=== PATIENT | male | born 1995 | race Caucasian/White ===

== ENCOUNTER 2018-03-05 20:07 | Inpatient (IN) | payer BC ==
[2018-03-05 20:08] VITALS: BMI 36.5
--- NOTE | 2018-03-05 20:53 | ED PDOC ---
Arrival/HPI - General Chief Complaint: Psychiatric Evaluation Time Seen by Provider: 03/05/18 20:10 Historian: Patient, Parent - History of Present Illness Narrative History of Present Illness (Text): 03/05/18 20:52 Malcolm Knox is a 22 year old male, whose past medical history includes schizophrenia and GERD on Amantadine, who presents to the Emergency department accompanied by parents complaining of suicidal ideation. Patient states he has been hearing voices and experiencing suicidal ideation for the past few days. Patient denies any plan. Patient was seen by his psychiatrist earlier today and advised to come to the ER for psychiatric admission. Patient denies any homicidal ideation, fever, chills, chest pain, shortness of breath, nausea, vomiting, diarrhea, urinary symptoms, back pain, or any other complaints. Psychiatrist: Dr. Dockery Time/Duration: < week Symptom Onset: Gradual Symptom Course: Unchanged Activities at Onset: Light Context: Home Past Medical History - Provider Review Nursing Documentation Reviewed: Yes - Infectious Disease Hx of Infectious Diseases: None - Tetanus Immunization Tetanus Immunization: Unknown - Past Medical History Past Medical History: No Previous - Cardiac Hx Cardiac Disorders: No - Pulmonary Hx Tuberculosis: No - Neurological HX Cerebrovascular Accident: No Hx Seizures: No - Hematological/Oncological Hx Cancer: No - Genitourinary/Gynecological Hx Sexually Transmitted Diseases: No - Psychiatric Hx Psychophysiologic Disorder: Yes (pt denies) Hx Schizophrenia: Yes Hx Substance Use: No - Past Surgical History Past Surgical History: No Previous - Anesthesia Hx Anesthesia: No Hx Anesthesia Reactions: No Hx Malignant Hyperthermia: No - Suicidal Assessment Feels Threatened In Home Enviroment: No Family/Social History - Physician Review Nursing Documentation Reviewed: Yes Family/Social History: Unknown Family HX Smoking Status: Never Smoked Hx Alcohol Use: No Hx Substance Use: No Hx Substance Use Treatment: No Allergies/Home Meds Allergies/Adverse Reactions: Allergies No Known Allergies Allergy (Verified 03/05/18 20:44) Home Medications: Home Meds Medication Instructions Recorded Confirmed Amantadine [Amantadine 100 mg Cap] 200 mg PO DAILY 03/05/18 03/05/18 Haloperidol [Haldol] 10 mg PO DAILY 03/05/18 03/05/18 Ranitidine HCl [Zantac] 300 mg PO ACD 03/05/18 03/05/18 Review of Systems - Physician Review All systems were reviewed & negative as marked: Yes - Review of Systems Constitutional: Normal. absent: Fevers Eyes: Normal ENT: Normal Respiratory: Normal. absent: SOB, Cough Cardiovascular: Normal. absent: Chest Pain Gastrointestinal: Normal. absent: Abdominal Pain, Diarrhea, Nausea, Vomiting Genitourinary Male: Normal. absent: Dysuria, Frequency, Hematuria, Urinary Output Changes Musculoskeletal: Normal. absent: Back Pain, Neck Pain Skin: Normal. absent: Rash Neurological: Normal. absent: Headache, Dizziness Endocrine: Normal Hemo/Lymphatic: Normal Psychiatric: Suicidal Ideation, Other (+auditory hallucinations) Physical Exam Vital Signs Reviewed: Yes Temperature: Afebrile Blood Pressure: Normal Pulse: Regular Respiratory Rate: Normal Appearance: Positive for: Well-Appearing, Non-Toxic, Comfortable Pain Distress: None Mental Status: Positive for: Alert and Oriented X 3 - Systems Exam Head: Present: Atraumatic, Normocephalic Pupils: Present: PERRL Extroacular Muscles: Present: EOMI Conjunctiva: Present: Normal Mouth: Present: Moist Mucous Membranes Neck: Present: Normal Range of Motion Respiratory/Chest: Present: Clear to Auscultation, Good Air Exchange. No: Respiratory Distress, Accessory Muscle Use Cardiovascular: Present: Regular Rate and Rhythm, Normal S1, S2. No: Murmurs Abdomen: No: Tenderness, Distention, Peritoneal Signs Back: Present: Normal Inspection Upper Extremity: Present: Normal Inspection. No: Cyanosis, Edema Lower Extremity: Present: Normal Inspection. No: Edema Neurological: Present: GCS=15, CN II-XII Intact, Speech Normal Skin: Present: Warm, Dry, Normal Color. No: Rashes Psychiatric: Present: Alert, Oriented x 3, Normal Insight, Normal Concentration Medical Decision Making ED Course and Treatment: 03/05/18 20:52 Impression: 22 year old male complaining of suicidal ideation and auditory hallucinations. Plan: -- EKG -- Chest X-ray -- Labs, alcohol -- Urine drug screen -- Amantadine -- Haldol -- Pepcid -- Reassess and disposition Prior Visits: Notes and results from previous visits were reviewed. Progress Notes: 03/05/18 21:32 Reviewed EKG, NSR at [address]-segment elevations or depressions, no T-wave inversions, normal intervals. 03/05/18 21:44 Chest X-ray reviewed, shows no acute processes. 03/05/18 22:37 Pt seen and evaluated by CASANDRA Gaspar, who discussed case with Dr. Dockery, psychiatrist. Pt will be admitted to [facility] for schizophrenia under Dr. Dockery's service. - Lab Interpretations I have reviewed the lab results: Yes - RAD Interpretation Chief Juvenile Probation Officer: ED Physician - EKG Interpretation Interpreted by ED Physician: Yes Type: 12 lead EKG - Scribe Statement The provider has reviewed the documentation as recorded by the Scribe Cynthia Bernal Provider Scribe Attestation: All medical record entries made by the Scribe were at my direction and personally dictated by me. I have reviewed the chart and agree that the record accurately reflects my personal performance of the history, physical exam, medical decision making, and the department course for this patient. I have also personally directed, reviewed, and agree with the discharge instructions and disposition. Disposition/Present on Arrival - Present on Arrival Any Indicators Present on Arrival: No History of DVT/PE: No History of Uncontrolled Diabetes: No Urinary Catheter: No History of Decub. Ulcer: No History Surgical Site Infection Following: None - Disposition Have Diagnosis and Disposition been Completed?: Yes Diagnosis: Schizophrenia, Suicidal ideation Disposition: HOSPITALIZED Disposition Time: 22:43 Patient Plan: Admission Condition: STABLE Referrals: Xochitl Persaud MD [Primary Care Provider] - Follow up with primary Forms: [facility] [employer] [facility] [employer] ([place]ian)
[2018-03-05 22:24] LABS: HEMOGLOBIN 13.9 g/dL (14.0-18.0); MEAN CORPUSCULAR HEMOGLOBIN 24.9 pg (25.0-35.0); MEAN CORPUSCULAR HGB CONC 32.7 g/dl (31.0-37.0); MEAN PLATELET VOLUME 11.1 fl (7.0-11.0); RBC 5.59 10^6/uL (3.5-6.1); WHITE BLOOD COUNT 10.9 10^3/uL (4.5-11.0)
[2018-03-05 22:34] LABS: ALB/GLOB RATIO 1.4 (1.1-1.8); ALBUMIN 4.5 g/dL (3.0-4.8); ALT/SGPT 43 U/L (7-56); AST/SGOT 34 U/L (17-59); BLOOD UREA NITROGEN 11 mg/dL (7-21); CALCIUM 9.3 mg/dL (8.4-10.5); GFR NON-AFRICAN AMERICAN > 60
[2018-03-06 00:55] LABS: URINE BILIRUBIN NEGATIVE (NEGATIVE); URINE BLOOD NEGATIVE (NEGATIVE); URINE GLUCOSE (UA) NEGATIVE (NEGATIVE); URINE LEUKOCYTE ESTERASE NEGATIVE Leu/uL (NEGATIVE); URINE PROTEIN NEGATIVE mg/dL (<30 mg/dL); URINE UROBILINOGEN 0.2 E.U./dL (<1 E.U./dL)
[2018-03-06 00:57] LABS: URINE APPEARANCE CLEAR (CLEAR); URINE COLOR YELLOW (YELLOW)
[2018-03-06 01:34] LABS: BARBITURATES, UR NEGATIVE (NEGATIVE); BENZODIAZEPINES, UR NEGATIVE (NEGATIVE); OPIATES, UR NEGATIVE (NEGATIVE); PHENCYCLIDINE, UR NEGATIVE (NEGATIVE)
[2018-03-06 02:03] VITALS: O2SAT 97
[2018-03-06] MEDS ORDERED: Alum-Mag Hydrox-Simethicone Susp (30 mL) PO PRN (02:34)
[2018-03-06] MEDS ORDERED: Magnesium Hydroxide Susp 30 ml UD PO PRN (02:34)
--- NOTE | 2018-03-06 03:34 | PCM.BM ---
<Barbara Ventura - Last Filed: 03/09/18 13:43> Family Contact Family involvement: Family/SO is involved Family contact: Patient agrees to contact <Amador Zuñiga - Last Filed: 03/12/18 02:52> Treatment Plan Problems - Problems identified on initial assessmt sucidal ideation Date Initiated: 03/06/18 Time Initiated: 03:33 Assessment reference: NA Status: Active Auditory hallucinations Date Initiated: 03/06/18 Time Initiated: 03:33 Assessment reference: NA Status: Active Ineffective coping Date Initiated: 03/06/18 Time Initiated: 03:33 Assessment reference: NA Status: Active Treatment assets and liabiliti Patient Assests: cooperative, educated, physically healthy Patient Liabilities: medical problems - Milieu Protocol Maintain good personal hygiene: daily Encourage regular showers, daily Remind patient to perform daily oral care Conduct patient checks and document Observation sheet: Q15 minutes Maintain personal safety: daily Monitor environment for contraband/sharps, every shift Educate patient to report safety concerns to staff Medication safety: Monitor for expected outcome, potential side effects: every shift, Assess readiness for medication education: every shift Discharge/Continuing Care - Education Needs Education Needs: Patient Medication, Patient Diagnosis/Disease Process, Patient Coping Skills, Patient Activities of Daily Living - Discharge Discharge Criteria: Tolerates medication w/o severe side effects, Free of Suicidal thoughts, Free of Homicidal thoughts Discharge to:: Home
[2018-03-06 07:22] LABS: GLUCOSE,FASTING 100 mg/dL (65-110); HDL CHOLESTEROL 33 mg/dL (29-60)
[2018-03-06 07:32] LABS: LDL CHOLESTEROL 96 mg/dL (0-129)
--- NOTE | 2018-03-06 09:23 | RAD ---
Date of service: 03/05/2018 HISTORY: medical clearance COMPARISON: 06/03/2015 FINDINGS: LUNGS: No active pulmonary disease. PLEURA: No significant pleural effusion identified, no pneumothorax apparent. CARDIOVASCULAR: No aortic atherosclerotic calcification present. Normal cardiac size. No pulmonary vascular congestion. OSSEOUS STRUCTURES: No significant abnormalities. VISUALIZED UPPER ABDOMEN: Normal. OTHER FINDINGS: None. IMPRESSION: No active disease.
--- NOTE | 2018-03-06 12:27 | CARD ---
APPROVED REPORT Date of service: 03/05/2018 EKG Measurement Heart [id number] <Conclusion> Normal sinus rhythm Normal ECG
--- NOTE | 2018-03-06 14:41 | HP ---
DATE OF EXAM: 03/06/2018 HISTORY OF PRESENT ILLNESS: Unfortunately, due to a all too frequent computer freeze, I am not able to access the actual computer programmatic schedule. In any event, the patient is a 22-year-old single male [place] descent who has been my patient for several years and who carries with him a diagnosis of schizoaffective disorder or paranoid schizophrenia. He had been admitted from my office where he had come, making an appointment at the time seen, with his parents, complaining that his ongoing intermittent auditory hallucinations or problematic thoughts, intermittent thoughts of killing himself by stabbing himself, overdosing or by other means and also having thoughts of killing his parents, more frequently his father, by either suffocating him or gouching out his eyes. The patient has capacity. He has come in voluntarily as a means of delivering him from the endangerment he feels he is in. His illnesses has been going on for approximately 4 years during which time he has been hospitalized approximately 4 times, all at [facility], for similar complaints. He has been on several medications during this period of time, including Abilify originally followed by Kenny, followed by Shahbaz, and now Haldol. None have offered sustained or satisfactory relief from these ongoing intermittent, disruptive, dangerous, thoughts. Attempts have been made to get him to attend a day program, he did attend one briefly (high focus) and on the day of his admission had called [facility] in [place] to try to enroll in their program (this in the state of heightened agitation because of an exacerbation of these ongoing thoughts). He had been on Haldol 10 mg and amantadine partly to treat his dystonic reaction, and to observe its effects on an intermittent involuntary orofacial movements (tardive dyskinesia). In the past, Clozaril has been suggested but rejected by the patient because of blood work (he has had morbid fear of agreeing to have blood drawn). The patient's medical condition is good, although he suffers from morbid obesity. He has lost 5 pounds recently but weighs 294 pounds. He is only minimally engaged in exercise and sleeps excessively (for 12-15 hours a day). He has never had any surgery. Dr. Persaud has been called for medical consultation. Other than his obesity, he appears to be in reasonably good health. PHYSICAL EXAMINATION: HEENT: Head is normocephalic. Pupils equal, round, reactive to light and accommodation. Mouth moist. No masses. No exudates. Gag reflex present. NECK: Supple. No jugular venous distension. No thyromegaly. No lymphadenopathy. . LUNGS: Clear to percussion and auscultation. HEART: Regular sinus rhythm. No murmurs, rubs or gallops. ABDOMEN: Soft. No organomegaly. Nontender. GENITALIA AND RECTAL: Deferred. EXTREMITIES: Symmetric pedal pulses present. The patient does observe his need for much sleep. His past psychiatric history is noted includes approximately 4-year history of disturbed thoughts including paranoia and auditory hallucinations and for hospitalizations all at [facility]. In the past, he has been diagnosed with chronic paranoid schizophrenia while the patient seems to be high at functioning, instead high function has the ability to be high functioning and appears intelligent. He resides with his parents. His father is a physician his mid 50s who appears to be good health. Mother is 1-2 years younger. She is a medical school graduate who has never worked as a physician. His father has hypertension. 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 He lives in isolative existence in his parents' home. He does have a friend who he interacts with predominantly over the phone, although occasionally does meet with him. He has never had a significant other of the opposite sex. He indicates that he was bullied in the 6th and 8th grade because of his racial makeup. A significant past medical history was denied. ALLERGIES: THE PATIENT DENIES ANY SPECIFIC ALLERGIES. SOCIAL HISTORY: He does not smoke cigarettes. He is presently upon interview in the treatment team meeting alert, oriented, somewhat anxious, does not appear to be responding to internal stimuli, but speaks of the voice of the female both commenting upon him, and telling him to act to either kill himself or his father predominantly. The patient appeared calm. I did not see any orofacial movements today. The patient is considered a reliable historian to the degree that he tends to minimize the impact of his symptoms. His speech is goal directed and focused, his mood is constricted, his formal thought process is noted, the patient is having psychotic ideation as noted. He also has intrusive thoughts. As a result, I have started the patient on Anafranil to try to palliate this dimension of his primary psychotic disorder. He is alert and oriented to 3 spheres. His attention and concentration, abstract thinking peers to be intact and he is considered to be intelligent. His memory is intact. The patient is high risk for suicidality and homicidality at this time. His strengths are that he is intelligent, has much family support, some education, is self-employed (although the extent of low successive is difficult to assess). DIAGNOSES: Schizoaffective disorder, obesity. I will start the patient on Clozaril (something he has resisted in the past, but is now willing to undergo blood testing). Refer the patient to a local IOP either [facility] or a program in [place]. Kosta Dockery MD/ PhD
--- NOTE | 2018-03-07 07:02 | CON ---
DATE: HISTORY OF PRESENT ILLNESS: The patient is 22 years old male, who was seen by Dr. Dockery in his office with compulsive thoughts of harming himself. The patient does admit that he only had thought, he has never executed any action to harm himself or to others. He is getting the diagnosis of schizophrenia since 2013. He claims that he has been very compliant with his medication and his symptoms have really not been 100% controlled on different medications. Currently, he is on Haldol. Medically, he does not complain of any significant physical or medical issue except getting heartburn once in a while. He also adds that since he has been on this psych medication, he has gained tremendous weight. However, he is hopeful that once he put his mind to it, he will be able to lose weight and he does admit losing 4 pounds in the last few weeks. PAST MEDICAL HISTORY: Significant for paranoid schizophrenia and he has been on Abilify. Initially, he was on Risperdal followed by Shahbaz and currently, he is on Haldol 10 mg daily. ALLERGIES: HE IS NOT ALLERGIC TO ANY MEDICATION. MEDICATION AT HOME: He is on Zantac 300 mg daily, Haldol 10 mg daily, amantadine 200 mg daily. SOCIAL HISTORY: Denies smoking, drinking or alcohol use. He finished his college before year and a half and currently, he cannot focus for further education. PHYSICAL EXAMINATION: GENERAL: He is awake and alert. He is morbidly obese. VITAL SIGNS: He is afebrile, pulse 84, respirations 20, blood pressure 121/66. LUNGS: Bilateral fair air flow. No rhonchi or crackles. HEART: S1, S2 audible. ABDOMEN: Soft, nontender. No rebound. No guarding. NEUROLOGIC: The patient is awake, alert, oriented, communicative. LABORATORY DATA: WBC is 10.9, hemoglobin 13.9, hematocrit 42.5, platelets 321. Chemistry; sodium 138, potassium 3.9, chloride 105, CO2 of 24. BUN 11, creatinine 0.7. Blood sugar 117. LFTs are within normal limits. TSH is 3.32, triglyceride 154, cholesterol 149. Urinalysis is unremarkable. Urine drug screen is negative. RPR is negative. ASSESSMENT: 1. Paranoid schizophrenia. 2. Morbid obesity. 3. Gastroesophageal reflux disease. PLAN: Medically, he is stable; however, he needs adjustment in his psych medication. We will follow up along with you and thanks for consult. Xochitl Persaud MD
--- NOTE | 2018-03-07 08:41 | PCM.PYCHPN ---
Psychiatric Progress Note - Psychiatric Progress Note Patient seen today, length of contact: 25 min Problems Identified/Issues Discussed: I reviewed recent notes on the unit and met with patient at bedside. Patient is a 22 yo male with a history of hallucinations, compulsive suicidal thoughts as well as homicidal thoughts. He is being managed with Haldol 10 mg on the unit and clozaril 25 mg was started last night. Patient has been tolerating both medications well thus far and denies any side effects. He denies experiencing any hallucinations this morning and his most recent episode was last night. Patient reports feeling a little better since admission, he is more hopeful and doesn't want to . Feels that he is also sleeping a little better. Patient appears preoccupied, distracted and flat during questioning. He isn't responding to internal stimuli. His behavior has been disorganized and odd but not aggressive. He generally keeps to himself on the unit with minimal socializing. Behavior continues to be unpredictable. Diagnostic Results: Schizophrenia Medication Change: Yes (clozaril increased) Medical Record Reviewed: Yes Mental Status Examination - Cognitive Function Orientation: Person, Place Memory: Impaired Attention: Poor Concentration: Poor Association: Loose Fund of Knowledge: Poor - Mood Mood: Depressed - Affect Affect: Constricted, Flat - Speech Speech: Soft - Formal Thought Process Formal Thought Process: Hallucinations, Delusions, Paranoia, Loosening of associations - Suicidal Ideation Suicidal Ideation: No - Homicidal Ideation Homicidal Ideation: No Goal/Treatment Plan - Goal/Treatment Plan Progress Toward Problem(s) and Goals/Treatment Plan: * group, milieu and supportive tx * c/w Haldol 10 mg po daily for disorganization/psychosis, added cogentin 1 mg po daily for EPS prophylaxis * c/w titration of clozaril, ~03/06/18 clozaril dose is 25 mg po HS ~03/07/18 clozaril dose increased to 25 mg po AMHS * ambien 5 mg po HS prn: insomnia * Vitals reviewed and noted below: 03/06/18 03/06/18 07:16 16:00 Temperature 97.9 F Pulse Rate 84 86 Respiratory 20 Rate Blood Pressure 126/87 121/66 * No new weekend labs thus far
--- NOTE | 2018-03-08 09:11 | PCM.PYCHPN ---
Psychiatric Progress Note - Psychiatric Progress Note Patient seen today, length of contact: 25 min Problems Identified/Issues Discussed: I reviewed recent notes on the unit and met with patient at bedside. Patient is a 22 yo male with a history of hallucinations, compulsive suicidal thoughts as well as homicidal thoughts. He is being managed with Haldol 10 mg on the unit and clozaril 25 mg was started on Friday and increased to 25 mg po AMHS yesterday. Patient has been tolerating both medications well thus far and denies any side effects. He denies experiencing any hallucinations this morning and reports that they generally occur at night. Patient reports feeling a little better since admission, he is more hopeful and doesn't want to . Indicates that mood is "neutral". Patient also feels that he is also sleeping a little better. Patient appears preoccupied during questioning but a little more related and focused than yesterday. He isn't responding to internal stimuli. His behavior has been odd but not aggressive. He generally keeps to himself and spends most of his time in bed with minimal socializing. Diagnostic Results: Schizophrenia Medication Change: Yes (clozaril increased) Medical Record Reviewed: Yes Mental Status Examination - Cognitive Function Orientation: Person, Place Memory: Impaired Attention: Poor Concentration: Poor Association: Loose Fund of Knowledge: Poor - Mood Mood: Depressed - Affect Affect: Constricted, Flat - Speech Speech: Soft - Formal Thought Process Formal Thought Process: Hallucinations, Delusions, Paranoia, Loosening of associations - Suicidal Ideation Suicidal Ideation: No - Homicidal Ideation Homicidal Ideation: No Goal/Treatment Plan - Goal/Treatment Plan Progress Toward Problem(s) and Goals/Treatment Plan: * group, milieu and supportive tx * c/w Haldol 10 mg po daily for disorganization/psychosis, added cogentin 1 mg po daily for EPS prophylaxis * c/w titration of clozaril, ~03/06/18 clozaril dose is 25 mg po HS ~03/07/18 clozaril dose increased to 25 mg po AMHS ~03/08/19 clozaril dose increased to 25 mg po AM and 50 mg po HS * ambien 5 mg po HS prn: insomnia * Vitals reviewed and noted below: Selected Entries 03/07/18 03/07/18 07:00 15:00 Temperature 98 F Pulse Rate 99 H 87 Respiratory 18 Rate Blood Pressure 115/82 136/89 * No new weekend labs thus far
--- NOTE | 2018-03-10 09:19 | PCM.PYCHPN ---
Psychiatric Progress Note - Psychiatric Progress Note Patient seen today, length of contact: 25 min Problems Identified/Issues Discussed: I reviewed recent notes on the unit and met with patient at bedside. Patient is a 22 yo male with a history of hallucinations, compulsive suicidal thoughts as well as homicidal thoughts. He is being managed with Haldol 10 mg on the unit and clozaril 25 mg was started on Friday and current at a dose of 25 mg po AM and 50 mg HS. Patient has been tolerating both medications well thus far and denies any side effects. He denies experiencing any hallucinations this morning and reports that they generally occur at night. Nonetheless they are reportedly improving in both intensity and frequency. Patient reports feeling a little better since admission, he is more hopeful and doesn't want to . Indicates that mood is "neutral". Patient also feels that he is also sleeping a little better. Patient appears preoccupied during questioning but a little more related and focused than prior visits. Still flat. He isn't responding to internal stimuli. His behavior has been odd but not aggressive. He generally keeps to himself. Diagnostic Results: Schizophrenia Medication Change: Yes (clozaril increased) Medical Record Reviewed: Yes Mental Status Examination - Cognitive Function Orientation: Person, Place Memory: Impaired Attention: Poor Concentration: Poor Association: Loose Fund of Knowledge: Poor - Mood Mood: Depressed - Affect Affect: Constricted, Flat - Speech Speech: Soft - Formal Thought Process Formal Thought Process: Hallucinations, Delusions, Paranoia, Loosening of associations - Suicidal Ideation Suicidal Ideation: No - Homicidal Ideation Homicidal Ideation: No Goal/Treatment Plan - Goal/Treatment Plan Progress Toward Problem(s) and Goals/Treatment Plan: * group, milieu and supportive tx * c/w Haldol 10 mg po daily for disorganization/psychosis and cogentin 1 mg po daily for EPS prophylaxis * c/w titration of clozaril, ~03/06/18 clozaril dose is 25 mg po HS ~03/07/18 clozaril dose increased to 25 mg po AMHS ~03/08/18 clozaril dose increased to 25 mg po AM + 50 mg HS ~03/10/18 clozaril dose increased to 50 mg AMHS * ambien 5 mg po HS prn: insomnia * Vitals reviewed and noted below: Selected Entries 12/31/18 12/31/18 07:14 15:00 Temperature 98.3 F Pulse Rate 81 98 H Respiratory 16 18 Rate Blood Pressure 133/76 134/71 *
--- NOTE | 2018-03-11 08:23 | PN ---
DATE: 03/09/2018 SUBJECTIVE: The patient is a 22-year-old single male with what appears to be a psychotic disorder with obsessional features. This examiner admits to being exhausted by the computer freezes that he is being subjected to in the course of trying to dictate medical records. I have reviewed the patient's situation with his father and with nursing and had interviewed the patient. He is alert and oriented. Unfortunately, I find him lying in bed which is a frequent or manifestation of his illness, which has included hypersomnia. Nonetheless given the refractoriness that the patient has exhibited to pharmacologic interventions, including a number of a major tranquilizers, he is now being subjected to Clozaril and also with Anafranil both at gradually increasing doses as per his ability to tolerate this. He does report an attenuation in his auditory hallucinations or in trouble some thoughts, which had earlier included killing himself or his father. The patient is anxious to leave the hospital. The patient is agreeing however now (not only to coming into the hospital and going on Clozaril, which requires a regular routine blood evaluation and thus something he had been opposed to in the past), but agrees also to attend a day program upon discharge. These are both welcome changes in the patient's symptom complex and opposed well for if not recovery than a more meaningful possibly therapeutic treatment plan then is here to for been able to be offered to this patient. The patient remains as would be anticipated obese and does still have some orofacial movements. We will continue to gradually increase Clozaril by 25 mg per day as tolerated. The patient's CBC and diff reviewed as well as Vital signs. Kosta Dockery MD/ PhD
--- NOTE | 2018-03-11 15:15 | PN ---
DATE: 03/11/2017 SUBJECTIVE: The patient is a 22-year-old seen and examined, complaint of some epigastric discomfort, especially in the morning hour when he is in empty stomach. Otherwise, he is doing very well. No history of weight loss, no history of loss of appetite. No nausea, vomiting or diarrhea. He is admitted for adjustment of his medications. PHYSICAL EXAMINATION VITAL SIGNS: He is afebrile, pulse 110, respirations 18, and blood pressure 95/55. LUNGS: Bilateral fair air flow. No rhonchi or crackle. HEART: S1 and S2 audible. ABDOMEN: Soft, obese, and nontender. No rebound. No guarding. NEUROLOGICAL: He is awake, alert, oriented, communicative and ambulatory. ASSESSMENT AND PLAN: I will add some Protonix, . I will order stool for Helicobacter pylori. We will follow up in the a.m. Xochitl Persaud MD
--- NOTE | 2018-03-11 15:29 | PN ---
DATE: 03/11/2018 SUBJECTIVE: The patient is a 22-year-old Citizen [place] male with an apparent psychotic disorder. He is alert, oriented to 3 spheres. He is spending inordinate/excessive amount of time in bed. REPORT: He has lessening of auditory hallucinations which are intermittent, of several hours a day duration, nonthreatening, none of command. He is complaining of abdominal pain and have reviewed this with Dr. Persaud. The patient will be registered in the Clozaril registry. He is undergoing increasing doses of this. Laboratory values are unable to be reported today due to a daily manifestation of computer failure and . Kosta Dockery MD/ PhD
[2018-03-12] MEDS: Pantoprazole 40 mg EC Tab PO SCH (06:41)
--- NOTE | 2018-03-12 14:10 | PN ---
DATE: 03/12/2018 SUBJECTIVE: The patient is alert, oriented 3 spheres. He remains "bedridden" (spending an excessive amount of time in bed). He needs encouragement to get out of bed. He reports an attenuation although still presence of auditory hallucinations but these did not appear to be of command nor of a derogatory to him. Thus, the patient denies homicidality or suicidality at this present time. He is complaining of nausea and indicates he has vomited several times. It is hard to tell if this is actual or one of the patient's recurrent patterns of developing side effects so as not to take medication. The patient is presently on Clozaril 50 mg a.m. and at bedtime and clomipramine 50 mg daily. He has been enrolled in the Clozaril registry. We got a CBC and differential with some neutrophil count. OBJECTIVE: VITAL SIGNS: Blood pressure 130 with 6/91, pulse 104, temperature 98, respiratory rate 20. Nursing notes did not describe any emetic episodes over the past 3 days thus being somewhat in opposition to the patient's description of his distress and symptomatology. The patient is being encouraged to agree to attend a day program in addition to being compliant with his medication. Kosta Dockery MD/ PhD ERNESTINA
[2018-03-13] MEDS: Pantoprazole 40 mg EC Tab PO SCH (06:22)
[2018-03-13 07:26] VITALS: RESP 18; TEMP 98.5
[2018-03-13 16:20] VITALS: BP 143/87; PULSE 111
--- NOTE | 2018-03-14 05:18 | DS ---
IDENTIFYING INFORMATION: The patient is a 22-year-old single [facility] male who had been under my care for several years and carries with him a diagnosis of schizoaffective disorder or paranoid schizophrenia. HISTORY OF PRESENT ILLNESS: The patient had been admitted from my office where he had been seen with his parents complaining that he has ongoing intermittent auditory hallucinations or problematic thoughts/intermittent thoughts of killing himself by either stabbing himself or overdosing or by other means and was also having thoughts of killing his parents, more so his father, by either suffocating him or gouging out his eyes. He had been hospitalized partly in an attempt to seek relief from his troubling thoughts. His disturbed thoughts have been of approximately 4-year duration, during which time he had been hospitalized approximately four times, all at [facility] for similar complaints. In the past, he had been on several medications, including Abilify, followed by Risperdal,, followed by Invega and now Haldol. He had not responded well to any of these ongoing medications with ongoing intermittent, disruptive, dangerous thoughts. Attempts have been made to get him to attend a day program. He did attend one briefly ([facility]), and on the day of his present admission, had called the [facility] program in [place] to try to enroll in that program (underscored his state of heightened agitation/concern because of his exacerbation of these ongoing thoughts). At the time of admission, he had been maintained on Haldol 10 mg and amantadine partly to treat his dystonic reaction including involuntary, intermittent, orofacial movements (tardive dyskinesia). In the past, Clozaril has been suggested, but rejected by the patient because of his fear of having blood drawn. The patient suffers from morbid obesity. He had lost 5 pounds recently, but weighed 294 pounds on admission. He had only minimally engaged in exercise and had been sleeping excessively (for 12-15 hours a day). In the past, he had been diagnosed with chronic paranoid schizophrenia. The patient, at times, seems to have been high functioning. He has not been doing so recently, although is considered to be intelligent. He had attended [employer] for one and half years before dropping out, having majored in business. 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 He has a limited social network, but does appear to have one friend that he speaks to intermittently. He resides with his parents. His father is a physician in his mid 50s, who appears to be in good health. Mother is 1-2 years younger. She is a medical school graduate who has never worked as a physician. His father has hypertension. He has one younger brother. He was noted to be goal-directed and focused, but constricted in affect, amotivational, seeking to spend excessive amounts of time in bed. His auditory hallucinations attenuated significantly and were not directed in the one person or with a homicidal or suicidal content. The patient was started on Clozaril during his hospital stay along with Anafranil to address a possible obsessive component of his primary psychotic disorder. A white count on 03/13/2018 was 11, neutrophils 59.2, absolute neutrophils 6.56. A urine drug screen on admission was negative. Biochemical profile showed lowered creatinine at 0.7 and fasting glucose on 03/06/2018 was 100, triglycerides 154, cholesterol 149, LDL cholesterol direct 96, HDL cholesterol 33, all within normal limits. His thyroid panel was normal limits, TSH was within normal limits. It was underscored to the patient that he needed to attend the day program and his attendance at [facility] was arranged with the patient having refused [employer] [facility] [employer] program which had a greater focus on vocational engagement/training diagnosis of schizoaffective disorder. The patient was not homicidal or suicidal, but was hearing voices intermittently, but of a nonthreatening nature at the time of discharge. He is to continue followup care with Dr. Dockery. Kosta Dockery MD/ PhD
== END 2018-03-13 17:27 | disposition home or self-care (01) | DRG 885 ==
LOC: ED 20:07 → ERH 22:40 → PSYC 03-06 02:03
PROVIDERS: ADMIT Psychiatry & Neurology Addiction Medicine; ATTEND Psychiatry & Neurology Addiction Medicine
DX: F25.9 Schizoaffective disorder, unspecified (principal); R45.851 Suicidal ideations; Z68.42 Body mass index [BMI] 45.0-49.9, adult; E66.01 Morbid (severe) obesity due to excess calories; G47.10 Hypersomnia, unspecified; K21.9 Gastro-esophageal reflux disease without esophagitis; Z79.899 Other long term (current) drug therapy; Z82.49 Family history of ischemic heart disease and other diseases of the circulatory system